=== PATIENT | female | born 2000 | race Two or more races ===

== ENCOUNTER 2025-06-09 06:50 | Day surgery (SDC) | payer BC, SELFPAY ==
[2025-06-09] VITALS (7 sets, daily range): BP systolic 88–124; BP diastolic 62–87; BMI 21.7
[2025-06-09] MEDS: NORMOSOL-R/PLASMALYTE-A 1000 IV (08:44)
[2025-06-09] MEDS: TYLENOL 1000 MG PO (08:44)
== END 2025-06-09 12:16 | disposition home or self-care (01) ==
LOC: SDS 06:50
PROVIDERS: ATTENDING PHYSICIAN Otolaryngology
DX: J35.01 Chronic tonsillitis (principal); J35.8 Other chronic diseases of tonsils and adenoids; R19.6 Halitosis
CPT/HCPCS: 42826; 88304